=== PATIENT | female | born 1995 | race Caucasian/White ===

== ENCOUNTER 2024-06-18 02:23 | Emergency (ER) | payer SELFPAY ==
[~2024-06-18] VITALS: Ht 165.1 cm; Wt 82.0 kg
[2024-06-18 02:26] VITALS: PULSE 94; RESP 20; O2SAT 98
[2024-06-18 02:31] VITALS: BP 125/84; TEMP 36.5; O2SAT 99
== END 2024-06-18 05:00 | disposition home or self-care (01) ==
LOC: ER 02:23
DX: F10.129 Alcohol abuse with intoxication, unspecified (principal); Y90.9 Presence of alcohol in blood, level not specified
CPT/HCPCS: 99281